=== PATIENT | male | born 1970 | race Caucasian/White ===

== ENCOUNTER 2019-05-21 07:18 | Emergency (ER) | payer BC, MEDICARE ==
[~2019-05-21] VITALS: Ht 177.8 cm; Wt 102.2 kg
[2019-05-21] MEDS ORDERED: METF-815 PO (07:41)
[2019-05-21] MEDS ORDERED: AMLO10TA4 PO (07:41)
[2019-05-21] MEDS ORDERED: LOSA25TA26 PO (07:41)
[2019-05-21] MEDS ORDERED: NORCO (07:42)
[2019-05-21] MEDS ORDERED: LIP40 PO (07:42)
[2019-05-21] MEDS ORDERED: ZOLP10TA2 PO (07:42)
[2019-05-21] MEDS ORDERED: SODIUM CHLORIDE 0.9% 1,000 ML IV ONE (07:58)
[2019-05-21] MEDS ORDERED: ACETAMINOPHEN 325MG TABLET PO ONE (08:00)
[2019-05-21] MEDS ORDERED: MECLIZINE 25MG TABLET PO ONE (08:00)
[2019-05-21 08:21] LABS: HEMOGLOBIN. 14.2 g/dL (14.0-18.0); LYMPHOCYTES % 27.4 % (20.0-50.0); MEAN CORPUSCULAR HEMOGLOBIN 28.6 pg (28.0-32.0); MEAN CORPUSCULAR VOLUME 84.6 fL (80.0-94.0); MEAN PLATELET VOLUME 8.6 fl (7.4-10.4); MONOCYTES % 4.7 % (2.0-8.0); NEUTROPHILS % 58.9 % (40.0-76.0); PLATELET 278 x1000/uL (130-400); RED BLOOD CELL COUNT 4.96 mill/uL (4.7-6.1); RED CELL DISTRIBUTION WIDTH 13.4 % (11.6-14.6)
[2019-05-21 08:26] LABS: CLARITY URINE CLEAR (CLEAR); COLOR URINE YELLOW (YELLOW); KETONES URINE NEGATIVE (NEGATIVE); LEUKOCYTE ESTERASE URINE NEGATIVE (NEGATIVE); NITRITE URINE NEGATIVE (NEGATIVE); OCCULT BLOOD URINE NEGATIVE (NEGATIVE); PROTEIN URINE NEGATIVE (NEGATIVE); SPECIFIC GRAVITY URINE 1.018 (1.005-1.030); UROBILINOGEN URINE 0.2 E.U./dL (0.2-1.0)
[2019-05-21 08:28] LABS: CHLORIDE 106 mEq/L (98-107)
[2019-05-21 09:20] VITALS: BP 138/86
== END 2019-05-21 09:27 | disposition home or self-care (01) ==
LOC: ER 07:18
DX: R51 Headache (principal); R42 Dizziness and giddiness; E11.9 Type 2 diabetes mellitus without complications; E78.00 Pure hypercholesterolemia, unspecified; I10 Essential (primary) hypertension; Z79.899 Other long term (current) drug therapy
CPT/HCPCS: 36415; 71045; 80053; 81003; 82962; 84484; 85025; 93005; 96360; 99284; J7030; J8597

== ENCOUNTER 2019-12-07 20:08 | Emergency (ER) | payer BC, MEDICARE ==
[~2019-12-07] VITALS: Ht 177.8 cm; Wt 104.0 kg
[~2019-12-07 20:08] MED LIST: AMLO10TA4 PO; LIP40 PO; LOSA25TA26 PO; METF-815 PO; NORCO; ZOLP10TA2 PO
[2019-12-07] MEDS ORDERED: IBUPROFEN 600MG TABLET PO ONE (20:45)
[2019-12-07] MEDS ORDERED: TETRACAINE 0.5% OPHTH DROPS 4ML RIGHTEYE ONE (20:45)
[2019-12-07] MEDS ORDERED: FLUORESCEIN SODIUM 1MG/STRIP RIGHTEYE ONE (20:45)
[2019-12-07 22:36] VITALS: BP 129/85
== END 2019-12-07 22:36 | disposition home or self-care (01) ==
LOC: ER 20:08
DX: S00.211A Abrasion of right eyelid and periocular area, initial encounter (principal); E78.00 Pure hypercholesterolemia, unspecified; E11.9 Type 2 diabetes mellitus without complications; Z79.899 Other long term (current) drug therapy; I10 Essential (primary) hypertension; X58.XXXA Exposure to other specified factors, initial encounter; Y93.89 Activity, other specified; Y92.89 Other specified places as the place of occurrence of the external cause; Y99.8 Other external cause status
CPT/HCPCS: 99283

== ENCOUNTER → 2020-03-31 | Outpatient (CLI) | payer BC, MEDICARE ==
[2020-03-31 11:47] LABS: BASOPHILS % 1.1 % (0.0-2.0); EOSINOPHILS % 5.7 % (0.0-5.0); HEMATOCRIT. 40.4 % (42.0-52.0); HEMOGLOBIN. 13.5 g/dL (14.0-18.0); LYMPHOCYTES % 27.8 % (20.0-50.0); MEAN PLATELET VOLUME 8.6 fl (7.4-10.4); NEUTROPHILS % 60.4 % (40.0-76.0); PLATELET 249 x1000/uL (130-400); RED CELL DISTRIBUTION WIDTH 13.7 % (11.6-14.6)
[2020-03-31 11:53] LABS: CHLORIDE 106 mEq/L (98-107)
[2020-03-31 14:24] LABS: PROSTRATE SPECIFIC AG TOTAL 0.86 ng/mL (0.0-4.0)
[2020-03-31 14:34] LABS: LDL CHOLESTEROL 110 mg/dL (5-100)
[2020-03-31 14:36] LABS: HDL CHOLESTEROL 38 mg/dL (40-59)
[2020-03-31 14:37] LABS: TOTAL IRON BINDING CAPACITY 406 ug/dL (250-450)
[2020-03-31 18:18] LABS: FOLIC ACID (FOLATE) SERUM 16.3 ng/mL (>5.38)
== END | disposition home or self-care (01) ==
LOC: LAB 11:13
PROVIDERS: ATTEND Family Medicine Adult Medicine
DX: Z00.00 Encounter for general adult medical examination without abnormal findings (principal)
CPT/HCPCS: 36415; 80053; 80061; 82306; 82607; 82728; 82746; 83036; 83540; 83550; 84153; 84443; 84481; 85025; G0103